=== PATIENT | female | born 1955 | race Caucasian/White ===

== ENCOUNTER 2016-07-09 14:45 | Inpatient (IN) | payer BC ==
--- NOTE | ~2016-07-09 | HP ---
History And Physical [place] [address] [facility] [place]. [address] NAME: ANGEL HERNANDEZ : 59 STATUS : ADM IN [facility]#: [id number] AGE: 61 ADM/REG DATE : 07/09/16 MR#: [id number] REPORT SERV DATE: 07/09/16 DICTATED BY: JACKSON DOMINGO DATE: 07/09/16 REPORT STATUS : Draft TRANSCRIBED BY: MODL DATE: 07/09/16 DATE OF ADMISSION: 07/09/2016 CHIEF COMPLAINT: Unresponsiveness. HISTORY OF PRESENT ILLNESS: This is a 61-year-old female, who has a history of COPD, hypertension, coronary artery disease, and history of medication over use, presented to the emergency room at [facility] with the above-mentioned complaint. History is obtained from the patient's who is at bedside and reviewing data available on the [employer] system. According to her , she had been poorly responsive, almost for two months now, becoming increasingly more somnolent and unable to perform activities of daily living. He states she cannot even walk or do anything and cannot even finish her meal. She just dozes off and appears not interested in doing anything. Today, he went to the store to get her a neck brace as he found she was hanging her head so much that he was concerned. When he got back home, he found her completely unresponsive and he could not wake her up. He was very concerned and called EMS and the patient was brought to the emergency room. In the emergency room, she was in hypotension. She had acute hypoxic respiratory failure. She was encephalopathic. A urine drug screen was positive for benzodiazepines, amphetamines, cannabinoids, and opiates. She was given Narcan and Romazicon intravenously and then started on a Narcan infusion in the ER. She was also given fluid boluses, which brought her blood pressure up to 140/64 and her saturations were 99% or greater while on supplemental oxygen therapy. Hospitalist Service is asked to admit her for further evaluation and treatment. At the time of my evaluation, Mrs. Hernandez was quite out of it and was unable to give any history or review of systems. Most of it was obtained from the patient's . He said, both him and his are on pain management, followed by Dr. Cavanaugh's office. According to Mr. Hernandez, she had not recently complained of any chest pain or palpitations. She did not have any orthopnea. He denied any cough recently. Denied any falls or loss of consciousness. No history of fevers, chills, nausea, vomiting, or diarrhea. He has not seen any bleeding anywhere. No other history of recent travel or exposures according to him. PAST MEDICAL HISTORY: Significant for history of COPD with ongoing tobacco smoking; history of seizure disorder; history of essential hypertension; coronary artery disease; chronic pain, on pain management secondary to degenerative disk disease. She also has hyperlipidemia. SOCIAL HISTORY: She smokes, has about [id number] history of smoking, continues to do so. She also uses pain medication prescribed by Pain Management. He denied she does amphetamines or cannabinoids. FAMILY HISTORY: Noncontributory. History And Physical [address] [address] NAME: ANGEL HERNANDEZ : 59 STATUS : ADM IN [facility]#: [id number] AGE: 61 ADM/REG DATE : 07/09/16 MR#: [id number] REPORT SERV DATE: 07/09/16 DICTATED BY: JACKSON DOMINGO DATE: 07/09/16 REPORT STATUS : Draft TRANSCRIBED BY: ALIE DATE: 07/09/16 MEDICATIONS AT HOME: Reviewed by me in the chart today and reordered by me. REVIEW OF SYSTEMS: As in history of present illness. All other systems were reviewed in detail and are quite unremarkable. PHYSICAL EXAMINATION: GENERAL: This is a pleasant 61-year-old, not in any acute distress. HEENT: Her head is atraumatic, normocephalic. She is alert, awake, oriented to time, place, and person. Pupils are equal, reacting to light and accommodating. External ocular muscles are intact. Membranes are moist and pink. Sclerae are nonicteric. NECK: Supple with no jugular venous distention, lymphadenopathy, or thyromegaly. LUNGS: Clear to auscultation with no wheezes, rubs, or crackles. HEART: Sounds were regular with no murmurs, rubs, or gallops. ABDOMEN: Soft, nontender. Bowel sounds are present. There was no organomegaly. EXTREMITIES: Showed no cyanosis, clubbing, or edema. Overall, there was poor hygiene and she did have a bad smell. NEURO: Grossly intact. No focal sensory or motor deficits. Although, she was quite unresponsive, barely arousable with stimuli. VITAL SIGNS: Today showed a temperature of 97.5, pulse 60, respirations 12-15 a minute, and blood pressure at the time of my evaluation was 140/64, oxygen saturations were 99% on 2-3 L via nasal cannula. LABORATORY DATA AND IMAGING: Reviewed on the [employer] system showed sodium of 140, potassium 4.2, chloride 100, CO2 of 33, BUN was 23 with a creatinine of 1.69, which is up from her baseline of 0.5 to 0.7. Her blood glucose was 92 today. Alkaline phosphatase, ALT, and AST were all within normal limits. Serum tox screen was within normal limits. CBC showed a white blood cell count of 7500. Normal hemoglobin, hematocrit, and platelet count. Urinalysis was not done. Urine drug screen was positive for benzodiazepines, amphetamines, cannabinoids, and opiates. Films of the chest x-ray and CT of the brain were reviewed by me on the PACS today and interpreted by me. Per my interpretation, the chest x-ray did not reveal any acute pulmonary process. There is normal bony architecture with no cardiomegaly. Lung joseph were clear with no lobar consolidations or pleural effusions. There is chronic interstitial changes seen. CT of the brain did not show any acute intracranial process at this time. A 12-lead EKG done in the emergency room was reviewed and interpreted by me. There is normal sinus rhythm at a rate of 62 per minute without any ST-T changes. IMPRESSION: 1. Encephalopathy. 2. Polysubstance abuse. 3. Hypotension and shock. 4. Hypoxic respiratory failure. 5. History of seizures. 6. Essential hypertension. 7. Coronary artery disease. 8. Chronic pain with degenerative disk disease. History And Physical [address] [address] NAME: ANGEL HERNANDEZ : 59 STATUS : ADM IN [facility]#: [id number] AGE: 61 ADM/REG DATE : 07/09/16 MR#: [id number] REPORT SERV DATE: 07/09/16 DICTATED BY: JACKSON DOMINGO DATE: 07/09/16 REPORT STATUS : Draft TRANSCRIBED BY: ALIE DATE: 07/09/16 9. Hyperlipidemia. 10.Acute kidney injury. PLAN: We will admit Mrs. Hernandez to the Hospitalist Service in the medical intermediate care unit bed for close monitoring. We will max her bronchodilator treatments, supplemental oxygen therapy, titrate FiO2 as tolerated. She has responded well to volume resuscitation in the ER. Her blood pressures have come up to 140/64 now. She is on Narcan infusion, which we will continue. The ER had given two to three doses of Narcan with some response and also given her doses of Romazicon. We will continue Narcan infusion and give additional dose of Romazicon. Her UDS was positive for multiple drugs of abuse, including cannabinoids and amphetamines. I have discussed this with the patient's as well. We will follow arterial blood gas in two to three hours. Monitor her closely and placed her on positive pressure support if necessary. Right now, she appears comfortable. She is in no respiratory distress at all. We will keep her n.p.o. for now and Blum catheter as well. We will hold all her p.o. medications, including pain narcotics and re-evaluate her in the morning. She will be on unfractionated heparin for DVT prophylaxis while here. I have discussed the above plans with the patient's in great detail. His questions were answered and he is agreeable to the above recommendations. Hospitalist Service will be following her during her stay here. /ALIE Jackson Domingo M.D. / [id number] CC: Jackson Domingo M.D.
--- NOTE | ~2016-07-09 | DS ---
Discharge Summary [facility] [address] [place]. [address] NAME: ANGEL HERNANDEZ : 59 STATUS : DIS IN PAT#: [id number] AGE: 61 ADM/REG DATE : 07/09/16 MR#: [id number] REPORT SERV DATE: 08/10/16 DICTATED BY: LEON MCCLELLAND DATE: 08/10/16 REPORT STATUS : Draft TRANSCRIBED BY: ALIE DATE: 08/10/16 ADMISSION DATE: 07/09/2016 DISCHARGE DATE: 07/10/2016 DISCHARGE DIAGNOSES: 1. Accidental narcotic overdose. 2. Acute encephalopathy. 3. Chronic pain. 4. Hypotension. 5. Acute renal failure. 6. Chronic obstructive pulmonary disease. CONSULTS: Critical Care Medicine. PROCEDURES: None. HOSPITAL COURSE: Please see dictated H and P for full patient history and presentation. BRIEF SUMMARY: The patient is a 61-year-old, white female with past medical history of chronic pain, who was initially admitted to the hospital on 08/09/2016 with increasing lethargy, with some acute renal failure and hypotension likely thought to be secondary to polypharmacy and accidental overdose with chronic narcotics. The patient initially was admitted to the ICU and required a Narcan drip after she responded to intermittent boluses of Narcan in the emergency room. She was briefly on a Narcan drip for some portion of the overnight in the ICU, but was weaned off this quickly. The patient woke up and was awake and following commands and doing well by the next morning. Her acute renal failure had also resolved with some IV hydration and her hypotension had as well all by the next morning. Given that she was completely normal and back to baseline the following day, we elected to go and just discharge her home from the ICU with instructions to be very careful in further narcotic administration. DISCHARGE MEDICATIONS: See medication reconciliation form. DISCHARGE DIET: Regular diet. DISPOSITION: The patient was discharged home in stable condition. FOLLOWUP: The patient is to follow up with her primary care physician as previously scheduled. BRANDEN/ALIE Leon Mcclelland MD Discharge Summary [facility] [address] [place]. [address] NAME: ANGEL HERNANDEZ : 59 STATUS : DIS IN PAT#: [id number] AGE: 61 ADM/REG DATE : 07/09/16 MR#: [id number] REPORT SERV DATE: 08/10/16 DICTATED BY: LEON MCCLELLAND DATE: 08/10/16 REPORT STATUS : Draft TRANSCRIBED BY: MODL DATE: 08/10/16 / [id number] CC: Jayla Dia M.D.
[~2016-07-09 14:45] MED LIST: *HOMEMEDS; *UNABLE3; ACET500CAP PO; ADDERALL30 MG PO; ADVAIR100 INH; ALBUTEROL5 INH; BP MED; COREG3 PO; CRESTOR40 MG PO; DUONEB INH; FISH-EPA1000 MG PO; FROVA2.5 MG PO; KLOR-CON M2020 MEQ PO; LEVAQUIN750 MG PO; MACROBID PO; MOBIC15 MG PO; MUCINEX1200 MG PO; MUCINEX600 MG PO; MULTIPLE VIT PO; NORV5 PO; OMNICEF300 PO; OXYCON20; OXYCONTIN60 MG PO; P10 PO; P20 PO; PEP20 PO; PERCOCET1 TA4 PO; PROVHFA INH; ROXICODONE15 MG; ROXICODONE30 MG PO; SENTAB PO; SYMBICORT 160/41 INH INH; TARKA PO; TRAZ100 PO; V5 PO; VALIUM10 MG PO; VENTOLIN HFA INH; VITAMIN C100 MG PO; VITAMIN D1000 UNI1 PO; X5 PO; ZANAFLEX 4 MG TA4 MG PO; ZESTRIL20 MG PO; ZOCOR20 PO; ZOL100 PO; [UNRECOGNIZED DRUG - REMARK]
[2016-07-09] MEDS ORDERED: OXYCODONE PO (15:36)
[2016-07-09] MEDS ORDERED: OPANA PO (15:36)
[2016-07-09] MEDS ORDERED: DIAZEPAM PO (15:37)
[2016-07-09] MEDS ORDERED: MOBIC PO (15:38)
[2016-07-09] MEDS ORDERED: SIMVASTATIN PO (15:38)
[2016-07-09] MEDS ORDERED: COREG PO (15:39)
[2016-07-09] MEDS ORDERED: *UNABLE3 (15:39)
[2016-07-09 16:05] LABS: BASOPHILS 0.3 %; BASOPHILS ABSOLUTE 0.02 10/3/uL (0.0-0.16); EOSINOPHILS 2.8 %; EOSINOPHILS ABSOLUTE 0.21 10/3/uL (0.0-0.53); ER CBC TAT 0 Hrs 07 Mins; HEMATOCRIT 37.9 % (36.0-48.0); HEMOGLOBIN 12.3 g/dL (12.0-16.0); IMMATURE GRANULOCYTES 0.1 %; IMMATURE GRANULOCYTES ABSOLUTE 0.01 10/3/uL (0.0-0.11); LYMPHOCYTES ABSOLUTE 2.34 10/3/uL (0.67-4.30); MANUAL DIFF NO %; MEAN CORPUS HGB CONC 32.5 g/dL (32.0-36.0); MEAN CORPUSCULAR HEMOGLOB 31.8 pg (26.0-34.0); MEAN CORPUSCULAR VOLUME 97.9 fL (80-100); MEAN PLATELET VOLUME 10.6 fL (9.2-13.0); MONOCYTES 6.9 %; MONOCYTES ABSOLUTE 0.52 10/3/uL (0.21-1.20); NEUTROPHILS 58.9 %; NEUTROPHILS ABSOLUTE 4.44 10/3/uL (2.02-8.40); PLATELET COUNT 204 10/3/uL (150-400); RBC DISTRIBUTION WIDTH 13.4 % (12.0-16.0); RED CELL COUNT 3.87 10/6/uL (4.0-5.6); WHITE BLOOD CELLS 7.5 10/3/uL (4.5-10.5)
[2016-07-09 16:20] LABS: ACETAMINOPHEN LEVEL (TYLENOL) < 2.0 MCG/ML (10.0-20.0); ALCOHOL < 10 MG/DL (0); SALICYLATE < 1.7 MG/DL (-)
[2016-07-09 16:21] LABS: ALBUMIN 3.5 G/DL (3.5-5.0); CALCIUM, SERUM 8.6 MG/DL (8.5-10.4); CHLORIDE, SERUM 100 MMOL/L (96-112); CO2 (CARBON DIOXIDE) 33 MMOL/L (24-34); GLOBULIN 3.6 G/DL (2.5-4.1); SGOT(AST) 22 U/L (5-40); SGPT(ALT) 21 U/L (5-65); SODIUM, SERUM 140 MMOL/L (135-148); TOTAL BILIRUBIN 0.3 MG/DL (0-1.2); TOTAL PROTEIN 7.1 G/DL (6.0-8.5)
[2016-07-09 16:24] LABS: ALKALINE PHOSPHATASE 79 U/L (45-117); BUN (BLOOD UREA NITROGEN) 23 MG/DL (6-23); CREATININE 1.69 MG/DL (0.55-1.02); GFR AFRICAN AMERICAN 38 ML/MIN (>=60); GFR NON AFRICAN AMERICAN 33 ML/MIN (>=60); GLUCOSE, SERUM 92 MG/DL (60-99); POTASSIUM, SERUM 4.2 MMOL/L (3.5-5.3)
[2016-07-09 17:00] LABS: AMPHETAMINES (NOT ORD) POS (NEG); BARBITURATES (NOT ORDERED NEG (NEG); BENZODIAZEPINES (NOT ORD) POS (NEG); CANNABINOIDS (THC) POS (NEG); COCAINE (NOT ORDERED) NEG (NEG); OPIATES POS (NEG); PHENCYCLIDINE(PCP) NEG (NEG); TRICYCLICS NEG (NEG)
[2016-07-10 03:35] LABS: BASOPHILS 0.2 %; BASOPHILS ABSOLUTE 0.02 10/3/uL (0.0-0.16); EOSINOPHILS 0.3 %; EOSINOPHILS ABSOLUTE 0.03 10/3/uL (0.0-0.53); HEMOGLOBIN 12.9 g/dL (12.0-16.0); IMMATURE GRANULOCYTES 0.2 %; IMMATURE GRANULOCYTES ABSOLUTE 0.02 10/3/uL (0.0-0.11); LYMPHOCYTES 15.7 %; MANUAL DIFF NO %; MEAN CORPUS HGB CONC 33.1 g/dL (32.0-36.0); MEAN CORPUSCULAR HEMOGLOB 32.1 pg (26.0-34.0); MEAN PLATELET VOLUME 10.3 fL (9.2-13.0); MONOCYTES 3.7 %; NEUTROPHILS 79.9 %; NEUTROPHILS ABSOLUTE 8.66 10/3/uL (2.02-8.40); PLATELET COUNT 218 10/3/uL (150-400); RBC DISTRIBUTION WIDTH 13.1 % (12.0-16.0); RED CELL COUNT 4.02 10/6/uL (4.0-5.6); WHITE BLOOD CELLS 10.8 10/3/uL (4.5-10.5)
[2016-07-10 03:49] LABS: CALCIUM, SERUM 7.9 MG/DL (8.5-10.4); CHLORIDE, SERUM 109 MMOL/L (96-112); CO2 (CARBON DIOXIDE) 30 MMOL/L (24-34); GFR AFRICAN AMERICAN 92 ML/MIN (>=60); GFR NON AFRICAN AMERICAN 79 ML/MIN (>=60); GLUCOSE, SERUM 88 MG/DL (60-99); PHOSPHORUS, SERUM 2.4 MG/DL (2.5-4.5); POTASSIUM, SERUM 4.2 MMOL/L (3.5-5.3); SODIUM, SERUM 144 MMOL/L (135-148)
[2016-07-10 03:53] LABS: BUN (BLOOD UREA NITROGEN) 17 MG/DL (6-23); CREATININE 0.81 MG/DL (0.55-1.02)
[2016-07-10 04:28] LABS: PROCALCITONIN <0.05 ng/mL (<0.5)
[2016-07-10 05:35] LABS: ALLENS TEST Pos; DEVICE NC; HCO3 (ACTUAL BICARBONATE) 32.8 MEQ/L (23-27); HEMOBLOGIN CONTENT 13.5 G/DL (12-16); INSTRUMENT SERIAL # 8087; METHEMOGLOBIN 0.2 % (0-3); O2 CONTENT 17.9 VOL% (18-24); OPERATOR ID 35188; PCO2 (CO2 TENSION) 57 MMHG (35-45); PO2 (O2 TENSION) 128 MMHG (79-93); SAMPLE Arterial; pH 7.38 (7.37-7.43)
[2016-07-10 05:36] LABS: ALLENS TEST Pos; BE (BASE EXCESS) 6.6 MEQ/L (0 +/- 2.5); CARBOXYHEMOGLOBIN 4.9 % (0-3); DEVICE NC; HCO3 (ACTUAL BICARBONATE) 33.7 MEQ/L (23-27); HEMOBLOGIN CONTENT 13.6 G/DL (12-16); INSTRUMENT SERIAL # 8087; METHEMOGLOBIN 0.2 % (0-3); OPERATOR ID 35188; PCO2 (CO2 TENSION) 59 MMHG (35-45); SAMPLE Arterial; pH 7.37 (7.37-7.43)
[2016-07-10 06:29] LABS: ALLENS TEST Pos; BE (BASE EXCESS) 1.4 MEQ/L (0 +/- 2.5); CARBOXYHEMOGLOBIN 0.2 % (0-3); DEVICE NC; HCO3 (ACTUAL BICARBONATE) 27.2 MEQ/L (23-27); HEMOBLOGIN CONTENT 13.6 G/DL (12-16); INSTRUMENT SERIAL # 11843; METHEMOGLOBIN 0.3 % (0-3); O2 CONTENT 18.9 VOL% (18-24); PCO2 (CO2 TENSION) 48 MMHG (35-45); PO2 (O2 TENSION) 129 MMHG (79-93); SAMPLE Arterial; pH 7.38 (7.37-7.43)
[2016-07-10] MEDS ORDERED: COREG3 PO (11:51)
[2016-07-10] MEDS ORDERED: ROXICODONE15 MG PO (11:56)
[2016-07-10] MEDS ORDERED: OPANA ER10 MG PO (11:57)
[2016-07-10] MEDS ORDERED: VALIUM10 MG PO ×2 (11:57→12:22)
[2016-07-10] MEDS ORDERED: MOBIC15 MG PO (11:57)
[2016-07-10] MEDS ORDERED: ZOCOR20 PO (11:58)
[2016-07-10] MEDS ORDERED: MAGNESIUM PO (12:26)
[2016-07-10] MEDS ORDERED: ASAB PO (12:26)
[2016-07-10] MEDS ORDERED: SYMBICORT 160/41 INH INH (12:27)
[2016-07-10 14:08] LABS: ASCORBIC ACID (UR NOT ORDER) NEG (NEG); BILIRUBIN, URINE NEGATIVE (NEG); KETONE, URINE NEGATIVE (NEG); LEUKOCYTE ESTERASE(NOT OR NEG (NEG); WBC (NOT ORDERED) (RFLEX) 3 (0-5)
== END 2016-07-10 13:30 | disposition home or self-care (01) | DRG 917 ==
LOC: ER 14:45 → ER/OF 20:48 → CVICU 21:51
PROVIDERS: Internal Medicine Critical Care Medicine; Internal Medicine Pulmonary Disease; Nurse Practitioner Family
DX: T42.4X1A Poisoning by benzodiazepines, accidental (unintentional), initial encounter (principal); J96.01 Acute respiratory failure with hypoxia; R57.9 Shock, unspecified; G92 Toxic encephalopathy; N17.9 Acute kidney failure, unspecified; G40.909 Epilepsy, unspecified, not intractable, without status epilepticus; I10 Essential (primary) hypertension; I25.10 Atherosclerotic heart disease of native coronary artery without angina pectoris; E78.5 Hyperlipidemia, unspecified; F17.210 Nicotine dependence, cigarettes, uncomplicated; J44.9 Chronic obstructive pulmonary disease, unspecified; Z88.2 Allergy status to sulfonamides; Z88.1 Allergy status to other antibiotic agents; T43.621A Poisoning by amphetamines, accidental (unintentional), initial encounter; T40.7X1A Poisoning by cannabis (derivatives), accidental (unintentional), initial encounter; G89.4 Chronic pain syndrome; T40.0X1A Poisoning by opium, accidental (unintentional), initial encounter; Z79.899 Other long term (current) drug therapy; Z79.82 Long term (current) use of aspirin
CPT/HCPCS: 36600; 70450; 71010; 80048; 80053; 80305; 80307; 81001; 82530; 82805; 82962; 83605; 83735; 84100; 84145; 85025; 87040; 87070; 87205; 87641; 93005; 94640; 96365; 96366; 96375; 96376; 99291; A9270-GY; J2310